=== PATIENT | female | born 1980 | race Caucasian/White ===

== ENCOUNTER 2022-12-26 10:56 | Outpatient (REF) | payer OTHER, SELFPAY | END 2022-12-26 10:57 | disposition home or self-care (01) | LOC: HO.BBR 10:56 | PROVIDERS: Visit Provider Internal Medicine Hematology | DX: Z13.89 Encounter for screening for other disorder (principal) ==

== ENCOUNTER 2023-03-29 11:24 | Outpatient (REF) | payer OTHER, SELFPAY | END 2023-03-29 11:25 | disposition home or self-care (01) | LOC: HO.BBR 11:24 | PROVIDERS: Visit Provider Internal Medicine Hematology | DX: Z13.89 Encounter for screening for other disorder (principal) ==

== ENCOUNTER 2023-10-31 09:10 | Outpatient (REF) | payer OTHER, SELFPAY | END 2023-10-31 09:11 | disposition home or self-care (01) | LOC: HO.BBR 09:10 | PROVIDERS: Visit Provider Internal Medicine Hematology | DX: Z13.89 Encounter for screening for other disorder (principal) ==

== ENCOUNTER 2024-12-30 09:08 | Outpatient (REF) | payer OTHER, SELFPAY ==
--- OUTSIDE RECORDS SUMMARY | 2024-12-30 10:09 | XMS_ITS ---
Author Organization [facility] Address [address] [place] [address] Care Team Providers Care Plastic Fabricator Name Role Phone VAMSI, ZAKI Unavailable [phone] REASON FOR VISIT 6 week f/u Encounters Encounter Location Date Provider Diagnosis [facility] [address] [place] [address] 10/07/2024 ZAKI AGUSTIN PLAN OF TREATMENT Next Appt Details Provider Name:ZAKI AGUSTIN, 0 01/14/2025 01:30:00 PM, [address], [place], [address], Progress Notes * UREÑARoss BOOEmigdioB:1980 (44 yo F)Acc No.[id number]:10/07/2024 Patient:??Chary UREÑA Provider:??ZAKI AGUSTIN PA-C :1980?Age:44 Y?Sex:Fe male Date:10/07/2024 Address[address], [place] Subjective: * Chief Complaints: * ?1. 6 week f/u. * Medical History:?? Objective: Assessment: Plan: * Treatment: * Images: Billing Information: * Visit Code:?? * Procedure Codes:?? * Sign off status: Pending * Provider:??ZAKI AGUSTIN PA-C Date:??09/27
--- OUTSIDE RECORDS SUMMARY | 2024-12-30 10:09 | XMS_ITS | Clinical Summary ---
[facility] Organization [facility] Address [address] [place] [address] Care Team Providers Care Custodial Maintenance Worker Name Role Phone Clementina Donnelly MD Primary Care Provider [phone] Social History Tobacco Use Types Packs/Day Years Used Date Smoking Tobacco: Never Smokeless Tobacco: Never Alcohol Use Standard Drinks/Week Comments Yes 0 (1 standard drink = 0.6 oz pur e alcohol) Comments Unknown Sex and Gender Information Value Date Recorded Sex Assigned at Female 12/18/2024 9:41 AM EST Legal Sex Female 12:00 AM EST Gender Identity Female 12/18/2024 9:41 AM EST Sexual Orientation Straight 12/18/2024 9: 41 AM EST Obstetrics History Plan of Treatment Upcoming Encounters Date Type Department Care Team (Late st Contact Info) Description 02/11/2025 8:30 AM EDT Appointment [facility] [address] [place] [address] Health Maintenance Due Date Last Done Comments Breast Cancer Screening 1980 DTaP,Tdap,and Td Vaccines (1 - Tdap) 1999 Hepatitis B Vaccines (1 of 3 - 19+ 3-dose series) 1999 Cervical Cancer Screening: P ap Smear 2001 Depression Screening 09/30/2022 HIV Screening 09/30/2022 Hepatitis C Screening 09/30/2022 Social Influencers of Health Screening 09/30/2022 COVID-19 Vaccine ( - 2023-2 5 season) 2024 Influenza Vaccine (#1) 2024 HIB Vaccines Aged Out No longer eligi ble based on patient's age to complete this topic HPV Vaccines Aged Out No longer eligi ble based on patient's age to complete this topic Hepatitis A Vaccines Aged Out No long er eligible based on patient's age to complete this topic IPV Vaccines Aged Out No longer eligi ble based on patient's age to complete this topic MMR Vaccines Aged Out No longer eligi ble based on patient's age to complete this topic Meningococcal ACWY Vaccine Aged Out N o longer eligible based on patient's age to complete this topic Meningococcal B Vacine Aged Out No lo nger eligible based on patient's age to complete this topic Pneumococcal Vaccine: Pediat rics (0 to 5 Years) and At-Risk Patients (6 to 64 Years) Aged Out No longer eligible b ased on patient's age to complete this topic RSV Immunization Patients Un josh 20 months Aged Out No longer eligible b ased on patient's age to complete this topic Varicella Vaccines Aged Out No longer eligible based on patient's age to complete this topic Insurance REPLACED BY [facility] Care Teams Custodial Maintenance Worker Relationship Specialty Start Date End Date Clementina Donnelly MD [address] [place], [place] [address]nelli Hartman [place] PCP - General Internal Medicine 11/09/20
--- OUTSIDE RECORDS SUMMARY | 2024-12-30 10:09 | XMS_ITS ---
Author Organization [facility] Address [address] [facility] [place] [address] Care Team Providers Care Delivery Table Feeder Name Role Phone VAMSILITAY Unavailable [phone] ALLERGIES No Known Allergies REASON FOR VISIT New patient, establishing care. MEDICATIONS Medication SIG (Take, Route, Fr equency, Duration) Notes Start Date End Date Status Zepbound 5 MG/0.5ML 5 mg Subcutaneous we ekly for 28 days Active PROBLEMS Problem Type ICD Code Onset Dates Problem Status W/U Status Risk SNOMED Code Notes Problem Hereditary hemochromatosis (E83.110) Active confirmed [id number] VITAL SIGNS Blood pressure systolic 130 mm Hg 12/02/19 25 Blood pressure diastolic 88 mm Hg 025 Heart Rate 83 /min 12/02/2024 Height 65 in 12/02/2024 Weight 152.4 lbs 12/02/2024 BMI 25.36 kg/m2 12/02/2024 Oximetry 98 % 12/02/2024 Encounters Encounter Location Date Provider Diagnosis [facility] [address] [place] [address] 12/02/2024 ZAKI AGUSTIN Overweight E66.3 ; F ood sticks on swallowing R13.10 ; BMI 25.0-25.9,adult Z68.25 ; Vitamin D deficiency, unspecified E55.9 ; Encounter for screening mammogram for malignant neoplasm of breast Z12.31 and Hereditary hemochromatosis E83.110 ASSESSMENTS Encounter Date Diagnosis Assessment Notes Treatment Notes Treatment Clinical Notes Section Notes 12/02/2024 Overweight (ICD-10 - E66.3) Chary is a 44-year-old female who presents the office for HEAD BUTLER visit. 07/16/2023:Weight 184.5, BMI 30.7. Patient welcomed to the practice. Extensively educated on lifestyle modifications including high-protein foods, low carbohydrate snacks, sleep hygiene, stress reduction, water intake, healthy fats. Provided educational documentation regarding all this. Patient is interested in weight loss medications to give her an extra boost although she is aware of the importance of continued lifestyle in conjunction with weight loss medications for successful/sustainab le weight loss. Patient has tried phentermine in the past, but admitted to a dry mouth and rebound weight gain getting off the medication. She is interested in compounded semaglutide. Educated on proper use, side effects. We will start at 0.25 mg today, and follow-up in 4 weeks, sooner as needed. 08/20/2023: Weight 176.3, BMI 29.33. Patient congratulated on effort. Continuing to lose slow, steady, sustainable weight loss. Very pleased with progress overall. Patient states that she has been sleeping better, portion control has been great and she has been feeling great on the medication. Is aware that she needs to focus more on resistance training. We will continue with semaglutide, but increase to 0.5 mg for the next 4 weeks. Patient is aware that at this time, she continues to lose weight she would not qualify for medications through health insurance. 01/08/2024: Weight 182.5, BMI 30.37. Patient was seen in July. Body composition reviewed and compared showing weight gain, 1 pound of muscle gain, 6 pounds of fat gain. Patient states she is ready to get back on track. Extensively educated on lifestyle modifications. Patient is going to contact her health insurance to see if they cover medication such as Wegovy or Zepbound. Is interested in starting Zepbound. States that she wants to start compounded while waiting for insurance approval. Educated on the insurance approval process with no guarantees of coverage or supply. Patient understanding. Will start tirzepatide 2.5 mg today. Educated on proper use, side effects. Follow-up in 4 weeks. 02/05/2024: Weight 173.4, BMI 28.85. Patient congratulated on effort. Encouraged to continue with slow, steady weight loss. Tried send Zepbpund, although still waiting on prior authorization, medical record librarian Rojas refilling out through cover my meds today. Doing tirzepatide 2.5 mg in office, taken with compliance, no side effects, noticing great improvement, feeling really well. Will continue tirzepatide 2.5 mg all waiting for insurance authorization. Continue with lifestyle as well. Patient encouraged. 03/26/2024: Weight 170, BMI 28.32. Patient congratulated on effort, body scan shows 3 pounds of weight loss. But 4 pounds of fat loss with muscle maintenance. Patient congratulated. Increase Zepbpund to 5 mg. Is aware of shortage, will contact with concern and can do compounded version in the meantime 05/08/2024: Weight 157.2, BMI 26.16. Patient congratulated on effort, continue to lose slow, steady weight. Taking Zepbound 5 mg with compliance, without side effects.. Pleased with progress overall. Focusing on high-protein, and resistance training 2 times weekly, otherwise we will continue with 5 mg dose. 07/09/24: Wt: 153 lbs, BMI: 25.46 Patient overall doing well. Has lost 5 pounds of fat mass in 1 pound skeletal muscle mass. Discussed increasing protein in diet and begin weightbearing exercise to maintain or increase skeletal muscle mass. Discussed adding protein in diet with hard-boiled eggs for breakfast as an easy alternative or a busy mom with children. Discussed diet of 1200 [address] to lose weight. Patient has a home gym and agreed to set goal as using weights 1 day a week to hold self accountable. Plan to continue Zepbound 5 mg weekly injectables and follow-up in 4 weeks to assess progress. 08/12/2024: Weight 145, BMI 24.21. Patient congratulated and effort, has had great success in starting this journey. Taking Zepbound 5 mg with compliance, doubt any side effects. Goal weight is around 140 pounds. Will continue with Zepbound but do it every 10 days instead of every 7 days, follow-up in 6 weeks, and consider tapering down to Zepbound 2.5 mg at that time.Doing very well with lifestyle and nutrition and exercise. 11/12/2024: Weight 154, BMI 25. Patient has gained 9 pounds since last visit, 3 pounds of muscle, also gained some fat. Patient states that she wants to continue with Zepbound 5 mg. Is not ready to get off, states that she feels much better on the medication with joint pain, energy etc. Is aware that she cannot be on this long-term but will continue with 5 mg for now and focus on continued lifestyle changes. 12/02/2024: Weight 152, BMI 25: Continue Zepbound 5 mg. Patient is pleased with progress overall. #Lack of sleep: Educated on sleep hygiene, Improved with weight loss. # Will sign record release, patient is up-to-date on Tdap, declines flu/COVID vaccines. Will order mammogram 12/02/2024 # Due for blood work, fasting labs ordered today # Sensation of food stuck in her throat with negative endoscopy 4 years ago. Admits to worsening symptoms. Will order barium swallow. Discussed small bites/fully chewing food. Reflux medications as needed # Difficulty with active recall. Family history of ADHD. Not interested in psychiatry evaluation. Trial methylated B vitamins and co-Q10. Patient does have a family history that carries MTHFR gene # Referral to [facility] for routine skin check # History of hemochromatosis, ordering labs, following with Dr. Coco Santiago, does get routine phlebotomy Follow-up in 4 to 6 weeks for complete physical, sooner as needed All quetsions answered to patients satisfaction. Patient verbalized understanding of diagnosis and treatments explained. To call sooner prior to next visit it any questions/concerns arise. Case discussed with collaborating physician Adalberto Daly who reviewed the assessment and plan. Chart, medications, labs, vital signs reviewed. Dictation was accomplished with the use of [employer] voice recognition software, prone to medical misidentifications and grammatical errors. This is unintentional and the practitioner does try to identify and correct these, but some could still be present. Please do not hesitate to contact practitioner for clarification. 12/02/2024 Food sticks on swallowing (ICD-10 - R13.10) Chary is a 44-year-old female who presents the office for HEAD BUTLER visit. 07/16/2023:Weight 184.5, BMI 30.7. Patient welcomed to the practice. Extensively educated on lifestyle modifications including high-protein foods, low carbohydrate snacks, sleep hygiene, stress reduction, water intake, healthy fats. Provided educational documentation regarding all this. Patient is interested in weight loss medications to give her an extra boost although she is aware of the importance of continued lifestyle in conjunction with weight loss medications for successful/sustainab le weight loss. Patient has tried phentermine in the past, but admitted to a dry mouth and rebound weight gain getting off the medication. She is interested in compounded semaglutide. Educated on proper use, side effects. We will start at 0.25 mg today, and follow-up in 4 weeks, sooner as needed. 08/20/2023: Weight 176.3, BMI 29.33. Patient congratulated on effort. Continuing to lose slow, steady, sustainable weight loss. Very pleased with progress overall. Patient states that she has been sleeping better, portion control has been great and she has been feeling great on the medication. Is aware that she needs to focus more on resistance training. We will continue with semaglutide, but increase to 0.5 mg for the next 4 weeks. Patient is aware that at this time, she continues to lose weight she would not qualify for medications through health insurance. 01/08/2024: Weight 182.5, BMI 30.37. Patient was seen in July. Body composition reviewed and compared showing weight gain, 1 pound of muscle gain, 6 pounds of fat gain. Patient states she is ready to get back on track. Extensively educated on lifestyle modifications. Patient is going to contact her health insurance to see if they cover medication such as Wegovy or Zepbound. Is interested in starting Zepbound. States that she wants to start compounded while waiting for insurance approval. Educated on the insurance approval process with no guarantees of coverage or supply. Patient understanding. Will start tirzepatide 2.5 mg today. Educated on proper use, side effects. Follow-up in 4 weeks. 02/05/2024: Weight 173.4, BMI 28.85. Patient congratulated on effort. Encouraged to continue with slow, steady weight loss. Tried send Zepbpund, although still waiting on prior authorization, medical record librarian Rojas refilling out through cover my meds today. Doing tirzepatide 2.5 mg in office, taken with compliance, no side effects, noticing great improvement, feeling really well. Will continue tirzepatide 2.5 mg all waiting for insurance authorization. Continue with lifestyle as well. Patient encouraged. 03/26/2024: Weight 170, BMI 28.32. Patient congratulated on effort, body scan shows 3 pounds of weight loss. But 4 pounds of fat loss with muscle maintenance. Patient congratulated. Increase Zepbpund to 5 mg. Is aware of shortage, will contact with concern and can do compounded version in the meantime 05/08/2024: Weight 157.2, BMI 26.16. Patient congratulated on effort, continue to lose slow, steady weight. Taking Zepbound 5 mg with compliance, without side effects.. Pleased with progress overall. Focusing on high-protein, and resistance training 2 times weekly, otherwise we will continue with 5 mg dose. 07/09/24: Wt: 153 lbs, BMI: 25.46 Patient overall doing well. Has lost 5 pounds of fat mass in 1 pound skeletal muscle mass. Discussed increasing protein in diet and begin weightbearing exercise to maintain or increase skeletal muscle mass. Discussed adding protein in diet with hard-boiled eggs for breakfast as an easy alternative or a busy mom with children. Discussed diet of 1200 [address] to lose weight. Patient has a home gym and agreed to set goal as using weights 1 day a week to hold self accountable. Plan to continue Zepbound 5 mg weekly injectables and follow-up in 4 weeks to assess progress. 08/12/2024: Weight 145, BMI 24.21. Patient congratulated and effort, has had great success in starting this journey. Taking Zepbound 5 mg with compliance, doubt any side effects. Goal weight is around 140 pounds. Will continue with Zepbound but do it every 10 days instead of every 7 days, follow-up in 6 weeks, and consider tapering down to Zepbound 2.5 mg at that time.Doing very well with lifestyle and nutrition and exercise. 11/12/2024: Weight 154, BMI 25. Patient has gained 9 pounds since last visit, 3 pounds of muscle, also gained some fat. Patient states that she wants to continue with Zepbound 5 mg. Is not ready to get off, states that she feels much better on the medication with joint pain, energy etc. Is aware that she cannot be on this long-term but will continue with 5 mg for now and focus on continued lifestyle changes. 12/02/2024: Weight 152, BMI 25: Continue Zepbound 5 mg. Patient is pleased with progress overall. #Lack of sleep: Educated on sleep hygiene, Improved with weight loss. # Will sign record release, patient is up-to-date on Tdap, declines flu/COVID vaccines. Will order mammogram 12/02/2024 # Due for blood work, fasting labs ordered today # Sensation of food stuck in her throat with negative endoscopy 4 years ago. Admits to worsening symptoms. Will order barium swallow. Discussed small bites/fully chewing food. Reflux medications as needed # Difficulty with active recall. Family history of ADHD. Not interested in psychiatry evaluation. Trial methylated B vitamins and co-Q10. Patient does have a family history that carries MTHFR gene # Referral to [facility] for routine skin check # History of hemochromatosis, ordering labs, following with Dr. Coco Santiago, does get routine phlebotomy Follow-up in 4 to 6 weeks for complete physical, sooner as needed All quetsions answered to patients satisfaction. Patient verbalized understanding of diagnosis and treatments explained. To call sooner prior to next visit it any questions/concerns arise. Case discussed with collaborating physician Adalberto Daly who reviewed the assessment and plan. Chart, medications, labs, vital signs reviewed. Dictation was accomplished with the use of [employer] voice recognition software, prone to medical misidentifications and grammatical errors. This is unintentional and the practitioner does try to identify and correct these, but some could still be present. Please do not hesitate to contact practitioner for clarification. 12/02/2024 BMI 25.0-25.9,adult (ICD-10 - Z68.25) Chary is a 44-year-old female who presents the office for HEAD BUTLER visit. 07/16/2023:Weight 184.5, BMI 30.7. Patient welcomed to the practice. Extensively educated on lifestyle modifications including high-protein foods, low carbohydrate snacks, sleep hygiene, stress reduction, water intake, healthy fats. Provided educational documentation regarding all this. Patient is interested in weight loss medications to give her an extra boost although she is aware of the importance of continued lifestyle in conjunction with weight loss medications for successful/sustainab le weight loss. Patient has tried phentermine in the past, but admitted to a dry mouth and rebound weight gain getting off the medication. She is interested in compounded semaglutide. Educated on proper use, side effects. We will start at 0.25 mg today, and follow-up in 4 weeks, sooner as needed. 08/20/2023: Weight 176.3, BMI 29.33. Patient congratulated on effort. Continuing to lose slow, steady, sustainable weight loss. Very pleased with progress overall. Patient states that she has been sleeping better, portion control has been great and she has been feeling great on the medication. Is aware that she needs to focus more on resistance training. We will continue with semaglutide, but increase to 0.5 mg for the next 4 weeks. Patient is aware that at this time, she continues to lose weight she would not qualify for medications through health insurance. 01/08/2024: Weight 182.5, BMI 30.37. Patient was seen in July. Body composition reviewed and compared showing weight gain, 1 pound of muscle gain, 6 pounds of fat gain. Patient states she is ready to get back on track. Extensively educated on lifestyle modifications. Patient is going to contact her health insurance to see if they cover medication such as Wegovy or Zepbound. Is interested in starting Zepbound. States that she wants to start compounded while waiting for insurance approval. Educated on the insurance approval process with no guarantees of coverage or supply. Patient understanding. Will start tirzepatide 2.5 mg today. Educated on proper use, side effects. Follow-up in 4 weeks. 02/05/2024: Weight 173.4, BMI 28.85. Patient congratulated on effort. Encouraged to continue with slow, steady weight loss. Tried send Zepbpund, although still waiting on prior authorization, medical record librarian Rojas refilling out through cover my meds today. Doing tirzepatide 2.5 mg in office, taken with compliance, no side effects, noticing great improvement, feeling really well. Will continue tirzepatide 2.5 mg all waiting for insurance authorization. Continue with lifestyle as well. Patient encouraged. 03/26/2024: Weight 170, BMI 28.32. Patient congratulated on effort, body scan shows 3 pounds of weight loss. But 4 pounds of fat loss with muscle maintenance. Patient congratulated. Increase Zepbpund to 5 mg. Is aware of shortage, will contact with concern and can do compounded version in the meantime 05/08/2024: Weight 157.2, BMI 26.16. Patient congratulated on effort, continue to lose slow, steady weight. Taking Zepbound 5 mg with compliance, without side effects.. Pleased with progress overall. Focusing on high-protein, and resistance training 2 times weekly, otherwise we will continue with 5 mg dose. 07/09/24: Wt: 153 lbs, BMI: 25.46 Patient overall doing well. Has lost 5 pounds of fat mass in 1 pound skeletal muscle mass. Discussed increasing protein in diet and begin weightbearing exercise to maintain or increase skeletal muscle mass. Discussed adding protein in diet with hard-boiled eggs for breakfast as an easy alternative or a busy mom with children. Discussed diet of 1200 [address] to lose weight. Patient has a home gym and agreed to set goal as using weights 1 day a week to hold self accountable. Plan to continue Zepbound 5 mg weekly injectables and follow-up in 4 weeks to assess progress. 08/12/2024: Weight 145, BMI 24.21. Patient congratulated and effort, has had great success in starting this journey. Taking Zepbound 5 mg with compliance, doubt any side effects. Goal weight is around 140 pounds. Will continue with Zepbound but do it every 10 days instead of every 7 days, follow-up in 6 weeks, and consider tapering down to Zepbound 2.5 mg at that time.Doing very well with lifestyle and nutrition and exercise. 11/12/2024: Weight 154, BMI 25. Patient has gained 9 pounds since last visit, 3 pounds of muscle, also gained some fat. Patient states that she wants to continue with Zepbound 5 mg. Is not ready to get off, states that she feels much better on the medication with joint pain, energy etc. Is aware that she cannot be on this long-term but will continue with 5 mg for now and focus on continued lifestyle changes. 12/02/2024: Weight 152, BMI 25: Continue Zepbound 5 mg. Patient is pleased with progress overall. #Lack of sleep: Educated on sleep hygiene, Improved with weight loss. # Will sign record release, patient is up-to-date on Tdap, declines flu/COVID vaccines. Will order mammogram 12/02/2024 # Due for blood work, fasting labs ordered today # Sensation of food stuck in her throat with negative endoscopy 4 years ago. Admits to worsening symptoms. Will order barium swallow. Discussed small bites/fully chewing food. Reflux medications as needed # Difficulty with active recall. Family history of ADHD. Not interested in psychiatry evaluation. Trial methylated B vitamins and co-Q10. Patient does have a family history that carries MTHFR gene # Referral to [facility] for routine skin check # History of hemochromatosis, ordering labs, following with Dr. Coco Santiago, does get routine phlebotomy Follow-up in 4 to 6 weeks for complete physical, sooner as needed All quetsions answered to patients satisfaction. Patient verbalized understanding of diagnosis and treatments explained. To call sooner prior to next visit it any questions/concerns arise. Case discussed with collaborating physician Adalberto Daly who reviewed the assessment and plan. Chart, medications, labs, vital signs reviewed. Dictation was accomplished with the use of [employer] voice recognition software, prone to medical misidentifications and grammatical errors. This is unintentional and the practitioner does try to identify and correct these, but some could still be present. Please do not hesitate to contact practitioner for clarification. 12/02/2024 Vitamin D deficiency, unspecified (ICD-10 - E55.9) Chary is a 44-year-old female who presents the office for HEAD BUTLER visit. 07/16/2023:Weight 184.5, BMI 30.7. Patient welcomed to the practice. Extensively educated on lifestyle modifications including high-protein foods, low carbohydrate snacks, sleep hygiene, stress reduction, water intake, healthy fats. Provided educational documentation regarding all this. Patient is interested in weight loss medications to give her an extra boost although she is aware of the importance of continued lifestyle in conjunction with weight loss medications for successful/sustainab le weight loss. Patient has tried phentermine in the past, but admitted to a dry mouth and rebound weight gain getting off the medication. She is interested in compounded semaglutide. Educated on proper use, side effects. We will start at 0.25 mg today, and follow-up in 4 weeks, sooner as needed. 08/20/2023: Weight 176.3, BMI 29.33. Patient congratulated on effort. Continuing to lose slow, steady, sustainable weight loss. Very pleased with progress overall. Patient states that she has been sleeping better, portion control has been great and she has been feeling great on the medication. Is aware that she needs to focus more on resistance training. We will continue with semaglutide, but increase to 0.5 mg for the next 4 weeks. Patient is aware that at this time, she continues to lose weight she would not qualify for medications through health insurance. 01/08/2024: Weight 182.5, BMI 30.37. Patient was seen in July. Body composition reviewed and compared showing weight gain, 1 pound of muscle gain, 6 pounds of fat gain. Patient states she is ready to get back on track. Extensively educated on lifestyle modifications. Patient is going to contact her health insurance to see if they cover medication such as Wegovy or Zepbound. Is interested in starting Zepbound. States that she wants to start compounded while waiting for insurance approval. Educated on the insurance approval process with no guarantees of coverage or supply. Patient understanding. Will start tirzepatide 2.5 mg today. Educated on proper use, side effects. Follow-up in 4 weeks. 02/05/2024: Weight 173.4, BMI 28.85. Patient congratulated on effort. Encouraged to continue with slow, steady weight loss. Tried send Zepbpund, although still waiting on prior authorization, medical record librarian Rojas refilling out through cover my meds today. Doing tirzepatide 2.5 mg in office, taken with compliance, no side effects, noticing great improvement, feeling really well. Will continue tirzepatide 2.5 mg all waiting for insurance authorization. Continue with lifestyle as well. Patient encouraged. 03/26/2024: Weight 170, BMI 28.32. Patient congratulated on effort, body scan shows 3 pounds of weight loss. But 4 pounds of fat loss with muscle maintenance. Patient congratulated. Increase Zepbpund to 5 mg. Is aware of shortage, will contact with concern and can do compounded version in the meantime 05/08/2024: Weight 157.2, BMI 26.16. Patient congratulated on effort, continue to lose slow, steady weight. Taking Zepbound 5 mg with compliance, without side effects.. Pleased with progress overall. Focusing on high-protein, and resistance training 2 times weekly, otherwise we will continue with 5 mg dose. 07/09/24: Wt: 153 lbs, BMI: 25.46 Patient overall doing well. Has lost 5 pounds of fat mass in 1 pound skeletal muscle mass. Discussed increasing protein in diet and begin weightbearing exercise to maintain or increase skeletal muscle mass. Discussed adding protein in diet with hard-boiled eggs for breakfast as an easy alternative or a busy mom with children. Discussed diet of 1200 armando to lose weight. Patient has a home gym and agreed to set goal as using weights 1 day a week to hold self accountable. Plan to continue Zepbound 5 mg weekly injectables and follow-up in 4 weeks to assess progress. 08/12/2024: Weight 145, BMI 24.21. Patient congratulated and effort, has had great success in starting this journey. Taking Zepbound 5 mg with compliance, doubt any side effects. Goal weight is around 140 pounds. Will continue with Zepbound but do it every 10 days instead of every 7 days, follow-up in 6 weeks, and consider tapering down to Zepbound 2.5 mg at that time.Doing very well with lifestyle and nutrition and exercise. 11/12/2024: Weight 154, BMI 25. Patient has gained 9 pounds since last visit, 3 pounds of muscle, also gained some fat. Patient states that she wants to continue with Zepbound 5 mg. Is not ready to get off, states that she feels much better on the medication with joint pain, energy etc. Is aware that she cannot be on this long-term but will continue with 5 mg for now and focus on continued lifestyle changes. 12/02/2024: Weight 152, BMI 25: Continue Zepbound 5 mg. Patient is pleased with progress overall. #Lack of sleep: Educated on sleep hygiene, Improved with weight loss. # Will sign record release, patient is up-to-date on Tdap, declines flu/COVID vaccines. Will order mammogram 12/02/2024 # Due for blood work, fasting labs ordered today # Sensation of food stuck in her throat with negative endoscopy 4 years ago. Admits to worsening symptoms. Will order barium swallow. Discussed small bites/fully chewing food. Reflux medications as needed # Difficulty with active recall. Family history of ADHD. Not interested in psychiatry evaluation. Trial methylated B vitamins and co-Q10. Patient does have a family history that carries MTHFR gene # Referral to [facility] for routine skin check # History of hemochromatosis, ordering labs, following with Dr. Coco Santiago, does get routine phlebotomy Follow-up in 4 to 6 weeks for complete physical, sooner as needed All quetsions answered to patients satisfaction. Patient verbalized understanding of diagnosis and treatments explained. To call sooner prior to next visit it any questions/concerns arise. Case discussed with collaborating physician Adalberto Daly who reviewed the assessment and plan. Chart, medications, labs, vital signs reviewed. Dictation was accomplished with the use of [employer] voice recognition software, prone to medical misidentifications and grammatical errors. This is unintentional and the practitioner does try to identify and correct these, but some could still be present. Please do not hesitate to contact practitioner for clarification. 12/02/2024 Encounter for screening mammogram for malignant neoplasm of breast (ICD-10 - Z12.31) Chary is a 44-year-old female who presents the office for HEAD BUTLER visit. 07/16/2023:Weight 184.5, BMI 30.7. Patient welcomed to the practice. Extensively educated on lifestyle modifications including high-protein foods, low carbohydrate snacks, sleep hygiene, stress reduction, water intake, healthy fats. Provided educational documentation regarding all this. Patient is interested in weight loss medications to give her an extra boost although she is aware of the importance of continued lifestyle in conjunction with weight loss medications for successful/sustainab le weight loss. Patient has tried phentermine in the past, but admitted to a dry mouth and rebound weight gain getting off the medication. She is interested in compounded semaglutide. Educated on proper use, side effects. We will start at 0.25 mg today, and follow-up in 4 weeks, sooner as needed. 08/20/2023: Weight 176.3, BMI 29.33. Patient congratulated on effort. Continuing to lose slow, steady, sustainable weight loss. Very pleased with progress overall. Patient states that she has been sleeping better, portion control has been great and she has been feeling great on the medication. Is aware that she needs to focus more on resistance training. We will continue with semaglutide, but increase to 0.5 mg for the next 4 weeks. Patient is aware that at this time, she continues to lose weight she would not qualify for medications through health insurance. 01/08/2024: Weight 182.5, BMI 30.37. Patient was seen in July. Body composition reviewed and compared showing weight gain, 1 pound of muscle gain, 6 pounds of fat gain. Patient states she is ready to get back on track. Extensively educated on lifestyle modifications. Patient is going to contact her health insurance to see if they cover medication such as Wegovy or Zepbound. Is interested in starting Zepbound. States that she wants to start compounded while waiting for insurance approval. Educated on the insurance approval process with no guarantees of coverage or supply. Patient understanding. Will start tirzepatide 2.5 mg today. Educated on proper use, side effects. Follow-up in 4 weeks. 02/05/2024: Weight 173.4, BMI 28.85. Patient congratulated on effort. Encouraged to continue with slow, steady weight loss. Tried send Zepbpund, although still waiting on prior authorization, medical record librarian Rojas refilling out through cover my meds today. Doing tirzepatide 2.5 mg in office, taken with compliance, no side effects, noticing great improvement, feeling really well. Will continue tirzepatide 2.5 mg all waiting for insurance authorization. Continue with lifestyle as well. Patient encouraged. 03/26/2024: Weight 170, BMI 28.32. Patient congratulated on effort, body scan shows 3 pounds of weight loss. But 4 pounds of fat loss with muscle maintenance. Patient congratulated. Increase Zepbpund to 5 mg. Is aware of shortage, will contact with concern and can do compounded version in the meantime 05/08/2024: Weight 157.2, BMI 26.16. Patient congratulated on effort, continue to lose slow, steady weight. Taking Zepbound 5 mg with compliance, without side effects.. Pleased with progress overall. Focusing on high-protein, and resistance training 2 times weekly, otherwise we will continue with 5 mg dose. 07/09/24: Wt: 153 lbs, BMI: 25.46 Patient overall doing well. Has lost 5 pounds of fat mass in 1 pound skeletal muscle mass. Discussed increasing protein in diet and begin weightbearing exercise to maintain or increase skeletal muscle mass. Discussed adding protein in diet with hard-boiled eggs for breakfast as an easy alternative or a busy mom with children. Discussed diet of 1200 [address] to lose weight. Patient has a home gym and agreed to set goal as using weights 1 day a week to hold self accountable. Plan to continue Zepbound 5 mg weekly injectables and follow-up in 4 weeks to assess progress. 08/12/2024: Weight 145, BMI 24.21. Patient congratulated and effort, has had great success in starting this journey. Taking Zepbound 5 mg with compliance, doubt any side effects. Goal weight is around 140 pounds. Will continue with Zepbound but do it every 10 days instead of every 7 days, follow-up in 6 weeks, and consider tapering down to Zepbound 2.5 mg at that time.Doing very well with lifestyle and nutrition and exercise. 11/12/2024: Weight 154, BMI 25. Patient has gained 9 pounds since last visit, 3 pounds of muscle, also gained some fat. Patient states that she wants to continue with Zepbound 5 mg. Is not ready to get off, states that she feels much better on the medication with joint pain, energy etc. Is aware that she cannot be on this long-term but will continue with 5 mg for now and focus on continued lifestyle changes. 12/02/2024: Weight 152, BMI 25: Continue Zepbound 5 mg. Patient is pleased with progress overall. #Lack of sleep: Educated on sleep hygiene, Improved with weight loss. # Will sign record release, patient is up-to-date on Tdap, declines flu/COVID vaccines. Will order mammogram 12/02/2024 # Due for blood work, fasting labs ordered today # Sensation of food stuck in her throat with negative endoscopy 4 years ago. Admits to worsening symptoms. Will order barium swallow. Discussed small bites/fully chewing food. Reflux medications as needed # Difficulty with active recall. Family history of ADHD. Not interested in psychiatry evaluation. Trial methylated B vitamins and co-Q10. Patient does have a family history that carries MTHFR gene # Referral to [facility] for routine skin check # History of hemochromatosis, ordering labs, following with Dr. Coco Santiago, does get routine phlebotomy Follow-up in 4 to 6 weeks for complete physical, sooner as needed All quetsions answered to patients satisfaction. Patient verbalized understanding of diagnosis and treatments explained. To call sooner prior to next visit it any questions/concerns arise. Case discussed with collaborating physician Adalberto Daly who reviewed the assessment and plan. Chart, medications, labs, vital signs reviewed. Dictation was accomplished with the use of [employer] voice recognition software, prone to medical misidentifications and grammatical errors. This is unintentional and the practitioner does try to identify and correct these, but some could still be present. Please do not hesitate to contact practitioner for clarification. 12/02/2024 Hereditary hemochromatosis (ICD-10 - E83.110) Chary is a 44-year-old female who presents the office for HEAD BUTLER visit. 07/16/2023:Weight 184.5, BMI 30.7. Patient welcomed to the practice. Extensively educated on lifestyle modifications including high-protein foods, low carbohydrate snacks, sleep hygiene, stress reduction, water intake, healthy fats. Provided educational documentation regarding all this. Patient is interested in weight loss medications to give her an extra boost although she is aware of the importance of continued lifestyle in conjunction with weight loss medications for successful/sustainab le weight loss. Patient has tried phentermine in the past, but admitted to a dry mouth and rebound weight gain getting off the medication. She is interested in compounded semaglutide. Educated on proper use, side effects. We will start at 0.25 mg today, and follow-up in 4 weeks, sooner as needed. 08/20/2023: Weight 176.3, BMI 29.33. Patient congratulated on effort. Continuing to lose slow, steady, sustainable weight loss. Very pleased with progress overall. Patient states that she has been sleeping better, portion control has been great and she has been feeling great on the medication. Is aware that she needs to focus more on resistance training. We will continue with semaglutide, but increase to 0.5 mg for the next 4 weeks. Patient is aware that at this time, she continues to lose weight she would not qualify for medications through health insurance. 01/08/2024: Weight 182.5, BMI 30.37. Patient was seen in July. Body composition reviewed and compared showing weight gain, 1 pound of muscle gain, 6 pounds of fat gain. Patient states she is ready to get back on track. Extensively educated on lifestyle modifications. Patient is going to contact her health insurance to see if they cover medication such as Wegovy or Zepbound. Is interested in starting Zepbound. States that she wants to start compounded while waiting for insurance approval. Educated on the insurance approval process with no guarantees of coverage or supply. Patient understanding. Will start tirzepatide 2.5 mg today. Educated on proper use, side effects. Follow-up in 4 weeks. 02/05/2024: Weight 173.4, BMI 28.85. Patient congratulated on effort. Encouraged to continue with slow, steady weight loss. Tried send Zepbpund, although still waiting on prior authorization, medical record librarian Rojas refilling out through cover my meds today. Doing tirzepatide 2.5 mg in office, taken with compliance, no side effects, noticing great improvement, feeling really well. Will continue tirzepatide 2.5 mg all waiting for insurance authorization. Continue with lifestyle as well. Patient encouraged. 03/26/2024: Weight 170, BMI 28.32. Patient congratulated on effort, body scan shows 3 pounds of weight loss. But 4 pounds of fat loss with muscle maintenance. Patient congratulated. Increase Zepbpund to 5 mg. Is aware of shortage, will contact with concern and can do compounded version in the meantime 05/08/2024: Weight 157.2, BMI 26.16. Patient congratulated on effort, continue to lose slow, steady weight. Taking Zepbound 5 mg with compliance, without side effects.. Pleased with progress overall. Focusing on high-protein, and resistance training 2 times weekly, otherwise we will continue with 5 mg dose. 07/09/24: Wt: 153 lbs, BMI: 25.46 Patient overall doing well. Has lost 5 pounds of fat mass in 1 pound skeletal muscle mass. Discussed increasing protein in diet and begin weightbearing exercise to maintain or increase skeletal muscle mass. Discussed adding protein in diet with hard-boiled eggs for breakfast as an easy alternative or a busy mom with children. Discussed diet of 1200 [address] to lose weight. Patient has a home gym and agreed to set goal as using weights 1 day a week to hold self accountable. Plan to continue Zepbound 5 mg weekly injectables and follow-up in 4 weeks to assess progress. 08/12/2024: Weight 145, BMI 24.21. Patient congratulated and effort, has had great success in starting this journey. Taking Zepbound 5 mg with compliance, doubt any side effects. Goal weight is around 140 pounds. Will continue with Zepbound but do it every 10 days instead of every 7 days, follow-up in 6 weeks, and consider tapering down to Zepbound 2.5 mg at that time.Doing very well with lifestyle and nutrition and exercise. 11/12/2024: Weight 154, BMI 25. Patient has gained 9 pounds since last visit, 3 pounds of muscle, also gained some fat. Patient states that she wants to continue with Zepbound 5 mg. Is not ready to get off, states that she feels much better on the medication with joint pain, energy etc. Is aware that she cannot be on this long-term but will continue with 5 mg for now and focus on continued lifestyle changes. 12/02/2024: Weight 152, BMI 25: Continue Zepbound 5 mg. Patient is pleased with progress overall. #Lack of sleep: Educated on sleep hygiene, Improved with weight loss. # Will sign record release, patient is up-to-date on Tdap, declines flu/COVID vaccines. Will order mammogram 12/02/2024 # Due for blood work, fasting labs ordered today # Sensation of food stuck in her throat with negative endoscopy 4 years ago. Admits to worsening symptoms. Will order barium swallow. Discussed small bites/fully chewing food. Reflux medications as needed # Difficulty with active recall. Family history of ADHD. Not interested in psychiatry evaluation. Trial methylated B vitamins and co-Q10. Patient does have a family history that carries MTHFR gene # Referral to [facility] for routine skin check # History of hemochromatosis, ordering labs, following with Dr. Coco Santiago, does get routine phlebotomy Follow-up in 4 to 6 weeks for complete physical, sooner as needed All quetsions answered to patients satisfaction. Patient verbalized understanding of diagnosis and treatments explained. To call sooner prior to next visit it any questions/concerns arise. Case discussed with collaborating physician Adalberto Daly who reviewed the assessment and plan. Chart, medications, labs, vital signs reviewed. Dictation was accomplished with the use of [employer] voice recognition software, prone to medical misidentifications and grammatical errors. This is unintentional and the practitioner does try to identify and correct these, but some could still be present. Please do not hesitate to contact practitioner for clarification. PLAN OF TREATMENT Medication Medication Name Sig Start Date Stop Date Notes Zepbound 5 MG/0.5ML 5 mg Subcutaneous weekly for 28 days Pending Test Test Name Order Date Barium Swallow 12/02/2024 MAMMOGRAM, SCREENING 12/02/2024 LIPID PANEL, STANDARD 12/02/2024 IRON, TIBC AND FERRITIN PANEL 12/02/2024 COMPREHENSIVE METABOLIC PANEL 12/02/2024 CBC (INCLUDES DIFF/PLT) 12/02/2024 URINALYSIS, COMPLETE 12/02/2024 HEMOGLOBIN A1c 12/02/2024 VITAMIN B12 12/02/2024 TSH 12/02/2024 VITAMIN D,25-OH,TOTAL,IA 12/02/2024 Next Appt Details Provider Name:Destini ASHLEY 01/14/2025 01:30:00 PM, [address], [place], [address], Progress Notes * Ross UREÑAaDOB:1980 (44 yo F)Acc No.[id number]:12/02/2024 Progress Notes Patient:??Chary UREÑA Provider:??ZAKI AGUSTIN PA-C :1980?Age:44 Y?Sex:Fe male Date:12/02/2024 Address:[address] [place], [place] [address]am[place] V[place]as, [facility] Subjective: * Chief Complaints: * ?1. New patient, [facility].. * HPI: ?Constitutional:? Chary presents today for a new patient visit. ?New patient paperwork reviewed with patient. ?Past medical, surgical, social, family history and medications reviewed. ?Coming from [facility] practice. ?Last CPE/Labs: 3-4 years ago. 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 ?Currently is living with her and four kids. ?Substance use/Lifestyle ?ETOH use: weekly will drink 3 drinks ?Tobacco use: declines ?Drugs/Marijuana use: declines ?Seatbelt Use: Yes ?Smoke Detectors: Yes ?Vaccinations- ?Flu Vaccine: UTD 07/2024 ?Covid: declines ?Tetanus: 05/2021 ?Prevention Screenings- ?Mammogram: will order ?PAP: UTD ?Patient does have a few concerns addressed today. Biggest concern is that she states that she multiple times weekly will feel like food gets stuck in her throat. Has had an endoscopy 4 years ago which was negative for stricture, but she states that the symptoms have been getting worse. She states it does not happen with liquids, just solids. States that sometimes she will feel the food gets stuck, and then she will have to take small sips of water, and she gradually feels it moved down her esophagus. She admits the pressure anteriorly, and posteriorly. Denies any reflux symptoms. ?Also patient states that she has some concerns with active recall, not interested in psychiatry follow-up yet for ADHD but does have family history of ADHD. Sister is positive for MTHFR gene, and she is going to try methylated B vitamins in conjunction with co-Q10 to see if that helps. ?Looking for referral to dermatology for routine skin check ?Following with Dr. Coco Santiago for hematology secondary to hereditary hemochromatosis. * ROS:?Constitutional: , no fever, no night sweats, no changes in sleep. ???Cardiovascular: No chest pain, no dyspnea on exertion, no PND, no orthopnea, no irregular pulse, no palpitations, no claudication, no diaphoresis, no claudication. ???Respiratory: No chronic cough, no hemoptysis, no sputum, no wheezing, no SOB, no pleuritic pain. ???GI, No diarrhea, no constipation, no blood in the stools, no pain associated with eating, no indigestion, no difficulty swallowing, no appetite change. ???Genitourinary: No painful urination, no hesitancy, no blood in the urine, no incontinence, no frequency, no urgency, no abnormal discharge. ???Musculoskeletal: No back pain, no joint pain, no limitations to walking and running, no joint deformity, no joint stiffness, no muscle weakness ???Integumentary: No new skin rash. No new changes in skin moles, no pruritis, no color change. ???Neurological: No history of seizures, no memory loss, no language dysfunction, no inability to concentrate, no localized weakness, no sensation loss, no confusion, no dizziness, no tremor, no numbness, no tingling. ???Psychiatric: no anxiety, no depression, no suicidal thoughts, feels safe at home. ???Endocrine: No polyuria, no polyphagia, no polydipsia. No heat/cold intolerance, no excesss thirst. ???Hematological: No easy bruising or bleeding, no lymph node swelling. * Medical History:??Weight gai n, Hereditary hemochromatosis, Uterine Fibroids, Sensation of food stuck in throat. 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 * OB History:??Total pregnanci es??3.?? # 1:??normal spontaneous vaginal delivery ().?? # 2:??normal spontaneous vaginal delivery ().?? # 3??Primary .?? * Surgical History:?? , deviated septum , right ovarian cyst removed , fibroid removal . * Hospitalization/Major Diagno stic Procedure:?? with pre-eclampsia . * Family History:??Father: ali ve 70 yrs.??Mother: alive 70 yrs.??2 sister(s) - healthy. 3 son(s) , 1 daughter(s) - healthy. .?? mother: skin cancer. 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 * Medications:??Taking Zepboun d 5 MG/0.5ML Solution Auto-injector 5 mg Subcutaneous weekly , Medication List reviewed and reconciled with the patient * Allergies:??N.K.D.A. Objective: * Vitals:??HR:83/min, BP:130/8 8mm Hg, Wt:152.4lbs, BMI:25.36Index, Ht: 65 in, Oxygen sat %:98%. * Physical Examination:?General: Age appropriate female, well appearing, no acute distress, speaking in full sentences without respiratory compromise. Well groomed, well developed. Alert, Interactive. ?Skin: Warm, dry and intact. ?HEENT: Normocephalic/atraumatic. ?Neck/Thyroid: Supple. Full ROM. ?Lung: Clear to auscultation bilaterally, no wheezes, rales or rhonchi. No barrel chest. Equal chest rise and fall bilaterally. ?Cardiac: S1 and S2 appreciated. No murmurs/rubs or gallops. ?Neuro: CN II-XI grossly intact. Steady gait with ambulation ?Psych: Stable mood and affect. Assessment: * Assessment: 1.??Food sticks on swallowin g - R13.10 (Primary)??2.??Overweight - E66.3??3.??BMI 25.0-25.9,adult - Z68.25??4.??Vitamin D deficiency, unspecified - E55.9??5.??Encounter for screening mammogram for malignant neoplasm of breast - Z12.31??6.??Hereditary hemochromatosis - E83.110?? Chary is a 44-year-old female who presents the office for HEAD BUTLER visit. 07/16/2023:Weight 184.5, BMI 30.7. Patient welcomed to the practice. Extensively educated on lifestyle modifications including high-protein foods, low carbohydrate snacks, sleep hygiene, stress reduction, water intake, healthy fats. Provided educational documentation regarding all this. Patient is interested in weight loss medications to give her an extra boost although she is aware of the importance of continued lifestyle in conjunction with weight loss medications for successful/sustainable weight loss. Patient has tried phentermine in the past, but admitted to a dry mouth and rebound weight gain getting off the medication. She is interested in compounded semaglutide. Educated on proper use, side effects. We will start at 0.25 mg today, and follow-up in 4 weeks, sooner as needed. 08/20/2023: Weight 176.3, BMI 29.33. Patient congratulated on effort. Continuing to lose slow, steady, sustainable weight loss. Very pleased with progress overall. Patient states that she has been sleeping better, portion control has been great and she has been feeling great on the medication. Is aware that she needs to focus more on resistance training. We will continue with semaglutide, but increase to 0.5 mg for the next 4 weeks. Patient is aware that at this time, she continues to lose weight she would not qualify for medications through health insurance. 01/08/2024: Weight 182.5, BMI 30.37. Patient was seen in July. Body composition reviewed and compared showing weight gain, 1 pound of muscle gain, 6 pounds of fat gain. Patient states she is ready to get back on track. Extensively educated on lifestyle modifications. Patient is going to contact her health insurance to see if they cover medication such as Wegovy or Zepbound. Is interested in starting Zepbound. States that she wants to start compounded while waiting for insurance approval. Educated on the insurance approval process with no guarantees of coverage or supply. Patient understanding. Will start tirzepatide 2.5 mg today. Educated on proper use, side effects. Follow-up in 4 weeks. 02/05/2024: Weight 173.4, BMI 28.85. Patient congratulated on effort. Encouraged to continue with slow, steady weight loss. Tried send Zepbpund, although still waiting on prior authorization, medical record librarian Rojas refilling out through cover my meds today. Doing tirzepatide 2.5 mg in office, taken with compliance, no side effects, noticing great improvement, feeling really well. Will continue tirzepatide 2.5 mg all waiting for insurance authorization. Continue with lifestyle as well. Patient encouraged. 03/26/2024: Weight 170, BMI 28.32. Patient congratulated on effort, body scan shows 3 pounds of weight loss. But 4 pounds of fat loss with muscle maintenance. Patient congratulated. Increase Zepbpund to 5 mg. Is aware of shortage, will contact with concern and can do compounded version in the meantime 05/08/2024: Weight 157.2, BMI 26.16. Patient congratulated on effort, continue to lose slow, steady weight. Taking Zepbound 5 mg with compliance, without side effects.. Pleased with progress overall. Focusing on high-protein, and resistance training 2 times weekly, otherwise we will continue with 5 mg dose. 07/09/24: Wt: 153 lbs, BMI: 25.46 Patient overall doing well. Has lost 5 pounds of fat mass in 1 pound skeletal muscle mass. Discussed increasing protein in diet and begin weightbearing exercise to maintain or increase skeletal muscle mass. Discussed adding protein in diet with hard-boiled eggs for breakfast as an easy alternative or a busy mom with children. Discussed diet of 1200 armando to lose weight. Patient has a home gym and agreed to set goal as using weights 1 day a week to hold self accountable. Plan to continue Zepbound 5 mg weekly injectables and follow-up in 4 weeks to assess progress. 08/12/2024: Weight 145, BMI 24.21. Patient congratulated and effort, has had great success in starting this journey. Taking Zepbound 5 mg with compliance, doubt any side effects. Goal weight is around 140 pounds. Will continue with Zepbound but do it every 10 days instead of every 7 days, follow-up in 6 weeks, and consider tapering down to Zepbound 2.5 mg at that time.Doing very well with lifestyle and nutrition and exercise. 11/12/2024: Weight 154, BMI 25. Patient has gained 9 pounds since last visit, 3 pounds of muscle, also gained some fat. Patient states that she wants to continue with Zepbound 5 mg. Is not ready to get off, states that she feels much better on the medication with joint pain, energy etc. Is aware that she cannot be on this long-term but will continue with 5 mg for now and focus on continued lifestyle changes. 12/02/2024: Weight 152, BMI 25: Continue Zepbound 5 mg. Patient is pleased with progress overall. #Lack of sleep: Educated on sleep hygiene, Improved with weight loss. # Will sign record release, patient is up-to-date on Tdap, declines flu/COVID vaccines. Will order mammogram 12/02/2024 # Due for blood work, fasting labs ordered today # Sensation of food stuck in her throat with negative endoscopy 4 years ago. Admits to worsening symptoms. Will order barium swallow. Discussed small bites/fully chewing food. Reflux medications as needed # Difficulty with active recall. Family history of ADHD. Not interested in psychiatry evaluation. Trial methylated B vitamins and co-Q10. Patient does have a family history that carries MTHFR gene # Referral to [facility] for routine skin check # History of hemochromatosis, ordering labs, following with Dr. Coco Santiago, does get routine phlebotomy Follow-up in 4 to 6 weeks for complete physical, sooner as needed All quetsions answered to patients satisfaction. Patient verbalized understanding of diagnosis and treatments explained. To call sooner prior to next visit it any questions/concerns arise. Case discussed with collaborating physician Adalberto Daly who reviewed the assessment and plan. Chart, medications, labs, vital signs reviewed. Dictation was accomplished with the use of [employer] voice recognition software, prone to medical misidentifications and grammatical errors. This is unintentional and the practitioner does try to identify and correct these, but some could still be present. Please do not hesitate to contact practitioner for clarification. Plan: * Treatment: 2.??Overweight?? Refill Zepbound Solution Auto-injector, 5 MG/0.5ML, 5 mg, Subcutaneous, weekly, 28 days, 4, Refills 0.? 3.??Vitamin D deficiency, un specified?LAB: LIPID PANEL, STANDARD ?LAB: COMPREHENSIVE METABOLIC PANEL ?LAB: CBC (INCLUDES DIFF/PLT) ?LAB: URINALYSIS, COMPLETE ?LAB: TSH ?LAB: VITAMIN D,25-OH,TOTAL,IA 4.??Encounter for screening mammogram for malignant neoplasm of breast?Imaging: MAMMOGRAM, SCREENING * Labs:?? * ?Lab: HEMOGLOBIN A1 c ?Lab: IRON, TIBC AN D FERRITIN PANEL ?Lab: VITAMIN B12 * Images: Billing Information: * Visit Code:?? 52684 Office Visit, Est Pt., Level 4. * Procedure Codes:?? * Sign off status: Completed true * Provider:??ZAKI AGUSTIN PA-C Date:??02/2025 History and Physical Notes * HPI (History of Present Illness) Category Sub-Category Detail Notes Category Not es Constitutional Chary presents today for a new patient visit. New patient paperwork reviewed with patient. Past medical, surgical, social, family history and medications reviewed. Coming from [facility]. Last CPE/Labs: 3-4 years ago. 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 Currently is living with her and four kids. Substance use/Lifestyle ETOH use: weekly will drink 3 drinks Tobacco use: declines Drugs/Marijuana use: declines Seatbelt Use: Yes Smoke Detectors: Yes Vaccinations- Flu Vaccine: UTD 07/2024 Covid: declines Tetanus: 05/2021 Prevention Screenings- Mammogram: will order PAP: UTD Patient does have a few concerns addressed today. Biggest concern is that she states that she multiple times weekly will feel like food gets stuck in her throat. Has had an endoscopy 4 years ago which was negative for stricture, but she states that the symptoms have been getting worse. She states it does not happen with liquids, just solids. States that sometimes she will feel the food gets stuck, and then she will have to take small sips of water, and she gradually feels it moved down her esophagus. She admits the pressure anteriorly, and posteriorly. Denies any reflux symptoms. Also patient states that she has some concerns with active recall, not interested in psychiatry follow-up yet for ADHD but does have family history of ADHD. Sister is positive for MTHFR gene, and she is going to try methylated B vitamins in conjunction with co-Q10 to see if that helps. Looking for referral to dermatology for routine skin check Following with Dr. 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 Well groomed, well developed. Alert, Interactive. Skin: Warm, dry and intact. HEENT: Normocephalic/atraumatic. Neck/Thyroid: Supple. Full ROM. Lung: Clear to auscultation bilaterally, no wheezes, rales or rhonchi. No barrel chest. Equal chest rise and fall bilaterally. Cardiac: S1 and S2 appreciated. No murmurs/rubs or gallops. Neuro: CN II-XI grossly intact. Steady gait with ambulation Psych: Stable mood and affect
--- OUTSIDE RECORDS SUMMARY | 2024-12-30 10:09 | XMS_ITS | Patient Health Record ---
Author Organization [facility] Address [address] [place] [address] Care Team Providers Care Operations Scheduler Name Role Phone ZAKI AGUSTIN Unavailable [phone] DALY, JAMESONCECI Unavailable [phone] DANIEL DELIA Unavailable [phone] NSARIN DALY Unavailable [phone] CESAR [place] Unavailable [phone] ALLERGIES No Known Allergies REASON FOR REFERRAL No Information MEDICATIONS Medication SIG (Take, Route, Fr equency, Duration) Notes Start Date End Date Status Zepbound 5 MG/0.5ML 5 mg Subcutaneous we ekly for 28 days Active PROBLEMS Problem Type ICD Code Onset Dates Problem Status W/U Status Risk SNOMED Code Notes Problem Vitamin D deficiency, unspecified (E55.9) Active confirmed Vitamin D deficiency (48754792) Problem Overweight (E66.3) Active confirmed Ove rweight (977812135) Problem Other obesity (E66.8) Active confirmed 649355909 Problem Hereditary hemochromatosis (E83.110) Active confirmed 58561229 Problem Encounter for screening mammogram for malignant neoplasm of breast (Z12.31) Active confirmed 483122518 Problem Encounter for screening for diabetes mellitus (Z13.1) Active confirmed 294947546 Problem Adult general medical exam (Z00.00) Active confirmed Adult health examination (328571919) Problem Obesity (BMI 30-39.9) (E66.9) Active confirmed 925220858 Problem Anemia due to vitamin B12 deficiency, unspecified B12 deficiency type (D51.9) Active confirmed 92259295 Problem BMI 30.0-30.9,adult (Z68.30) Active confirmed 282983442 Problem Encounter for screening for endocrine disorder (Z13.29) Active confirmed Endocrine/meta bolic screening (467164401) Problem Lipid screening (Z13.220) Active confirmed Lipid screening (418436130) Problem Hemochromatosis, unspecified hemochromatosis type (E83.119) Active confirmed 460471284 Problem Food sticks on swallowing (R13.10) Active confirmed 021250948 VITAL SIGNS Heart Rate 83 /min 12/02/2024 Blood pressure diastolic 88 mm Hg 12/02/2024 Oximetry 98 % 12/02/2024 Height 65 in 12/02/2024 Blood pressure systolic 130 mm Hg 12/02/2024 Weight 152.4 lbs 12/02/2024 BMI 25.36 kg/m2 12/02/2024 Encounters Encounter Location Date Provider Diagnosis [facility] [address] [place] [address] 01/16/2024 ALLYSON DALY [facility] [address] [place] [address] 01/23/2024 [facility] [address] [place] [address] 01/30/2024 ALLYSON DALY [facility] [address] [place] [address] 02/11/2024 TALAL DALY [facility] [address] [place] [address] 02/18/2024 TALAL DALY [facility] [address] [place] [address] 02/26/2024 TALAL DALY [facility] [address] [place] [address] 03/04/2024 TALAL DALY [facility] [address] [place] [address] 03/11/2024 EASTON DALY [facility] [address] [facility] [address] [place] [address] 03/26/2024 DELIA SANCHEZ [facility] [address] [place] [address] 04/02/2024 TALAL DALY [facility] [address] [place] [address] 04/09/2024 EASTON DALY [facility] [address] [facility] [place] [address] 04/16/2024 TALCECI DALY [facility] [address] [facility] [place] [address] 10/07/2024 ZAKI VAMSI [facility] [address] [facility] [place] [address] 01/08/2024 ZAKI VAMSI Other obesity E66.8 and Obesity (BMI 30-39.9) E66.9 [facility] [address] [facility] [place] [address] 02/05/2024 ZAKI VAMSI Overweight E66.3 and BMI 28.0-28.9,adult Z68.28 [facility] [address] [facility] [place] [address] 03/19/2024 ZAKI VAMSI Overweight E66.3 and BMI 28.0-28.9,adult Z68.28 [facility] [address] [facility] [address] 05/08/2024 ZAKI VAMSI Overweight E66.3 and BMI 26.0-26.9,adult Z68.26 [facility] [address] [facility] [place] [address] 07/09/2024 CESAR ALTHEA Overweight E66.3 and BMI 25.0-25.9,adult Z68.25 [facility] [address] [facility] [place] [address] 08/12/2024 ZAKI VAMSI BMI 24.0-24.9, adult Z68.24 [facility] [address] [facility] [place] [address] 11/12/2024 ZAKI VAMSI BMI 25.0-25.9,adult Z68.25 and Overweight E66.3 [facility] [address] [facility] [address] 12/02/2024 ZAKI VAMSI Overweight E66.3 ; F ood sticks on swallowing R13.10 ; BMI 25.0-25.9,adult Z68.25 ; Vitamin D deficiency, unspecified E55.9 ; Encounter for screening mammogram for malignant neoplasm of breast Z12.31 and Hereditary hemochromatosis E83.110 [facility] [address] [place] [address] 02/10/[address] [facility] [facility] [address] [place] [address] 02/14/[address] [facility] [address] [place] [address] 02/18/[address] [facility] [address] [place] [address] 03/19/2024 ZAKI VAMSI Overweight E66.[address] [facility] [address] [place] [address] 03/30/2024 ZAKI VAMSI Overweight E66.[address] [facility] [address] [place] [address] 06/17/2024 ZAKI VAMSI Overweight E66.[address] [facility] [address] [place] [address] 10/06/2024 ZAKI VAMSI [address] [facility] [address] [place] [address] 03/03/2024 ZAKI VAMSI [address] [place] [address] 03/10/[address] [facility] [address] [place] [address] 09/30/[address] [facility] [address] [place] [address] 09/30/2024 ZAKI VAMSI ASSESSMENTS Encounter Date Diagnosis Assessment Notes Treatment Notes Treatment Clinical Notes Section Notes 01/08/2024 Other obesity (ICD-10 - E66.8) Chary is a 42-year-old female who presents the office for weight management f/u. 07/16/2023:Weight 184.5, BMI 30.7. Patient welcomed to [...] use, side effects. Follow-up in 4 weeks. After consultation and careful review of medical history, this patient would benefit from Zepbound based off of the following criteria met: Patient is over the age of 18, has a BMI of 30. Patient has trialed other methods of weight loss including improving diet, exercise without success over three months. This medication is prescribed by or in consultation with a board certified obesity and weight management physician (Dr. Easton Daly or Dr. Nasrin Daly). #Lack of sleep: Educated on sleep hygiene, Improved with weight loss. Time spent on patient 30 minutes or greater than 50% of patient education and care coordination. Patient follow-up in 4 weeks, sooner as needed. All quetsions answered to patients satisfaction. Patient verbalized understanding of diagnosis and treatments explained. To call sooner prior to next visit it any questions/concerns arise. Case discussed with collaborating physician Adalberto Daly who reviewed the assessment and plan. Chart, medications, labs, vital signs reviewed. Dictation was accomplished with the use of [email or web address] voice recognition software, prone to medical misidentifications and grammatical errors. This is unintentional and the practitioner does try to identify and correct these, but some could still be present. Please do not hesitate to contact practitioner for clarification. 01/08/2024 Obesity (BMI 30-39.9) (ICD-10 - E66.9) Chary is a 42-year-old female who presents the office for weight management f/u. 07/16/2023:Weight 184.5, BMI 30.7. Patient welcomed to [...] use, side effects. Follow-up in 4 weeks. After consultation and careful review of medical history, this patient would benefit from Zepbound based off of the following criteria met: Patient is over the age of 18, has a BMI of 30. Patient has trialed other methods of weight loss including improving diet, exercise without success over three months. This medication is prescribed by or in consultation with a board certified obesity and weight management physician (Dr. Easton Daly or Dr. Nasrin Daly). #Lack of sleep: Educated on sleep hygiene, Improved with weight loss. Time spent on patient 30 minutes or greater than 50% of patient education and care coordination. Patient follow-up in 4 weeks, sooner as needed. All quetsions answered to patients satisfaction. Patient verbalized understanding of diagnosis and treatments explained. To call sooner prior to next visit it any questions/concerns arise. Case discussed with collaborating physician Adalberto Daly who reviewed the assessment and plan. Chart, medications, labs, vital signs reviewed. Dictation was accomplished with the use of [email or web address] voice recognition software, prone to medical misidentifications and grammatical errors. This is unintentional and the practitioner does try to identify and correct these, but some could still be present. Please do not hesitate to contact practitioner for clarification. 02/05/2024 Overweight (ICD-10 - E66.3) Chary is a 42-year-old female who presents the office for weight management f/u. 07/16/2023:Weight 184.5, BMI 30.7. Patient welcomed to [...] Zepbpund, although still waiting on prior authorization, biomedical engineering director Rojas refilling out through cover my meds today. Doing tirzepatide 2.5 mg in office, taken with compliance, no side effects, noticing great improvement, feeling really well. Will continue tirzepatide 2.5 mg all waiting for insurance authorization. Continue with lifestyle as well. Patient encouraged. #Lack of sleep: Educated on sleep hygiene, Improved with weight loss. Time spent on patient 30 minutes or greater than 50% of patient education and care coordination. Patient follow-up in 4 weeks, sooner as needed. All quetsions answered to patients satisfaction. Patient verbalized understanding of diagnosis and treatments explained. To call sooner prior to next visit it any questions/concerns arise. Case discussed with collaborating physician Adalberto Daly who reviewed the assessment and plan. Chart, medications, labs, vital signs reviewed. Dictation was accomplished with the use of [email or web address] voice recognition software, prone to medical misidentifications and grammatical errors. This is unintentional and the practitioner does try to identify and correct these, but some could still be present. Please do not hesitate to contact practitioner for clarification. 02/05/2024 BMI 28.0-28.9,adult (ICD-10 - Z68.28) Chary is a 42-year-old female who presents the office for weight management f/u. 07/16/2023:Weight 184.5, BMI 30.7. Patient welcomed to [...] Zepbpund, although still waiting on prior authorization, biomedical engineering director Rojas refilling out through cover my meds today. Doing tirzepatide 2.5 mg in office, taken with compliance, no side effects, noticing great improvement, feeling really well. Will continue tirzepatide 2.5 mg all waiting for insurance authorization. Continue with lifestyle as well. Patient encouraged. #Lack of sleep: Educated on sleep hygiene, Improved with weight loss. Time spent on patient 30 minutes or greater than 50% of patient education and care coordination. Patient follow-up in 4 weeks, sooner as needed. All quetsions answered to patients satisfaction. Patient verbalized understanding of diagnosis and treatments explained. To call sooner prior to next visit it any questions/concerns arise. Case discussed with collaborating physician Adalberto Daly who reviewed the assessment and plan. Chart, medications, labs, vital signs reviewed. Dictation was accomplished with the use of [email or web address] voice recognition software, prone to medical misidentifications and grammatical errors. This is unintentional and the practitioner does try to identify and correct these, but some could still be present. Please do not hesitate to contact practitioner for clarification. 03/19/2024 Overweight (ICD-10 - E66.3) Chary is a 42-year-old female who presents the office for weight management f/u. 07/16/2023:Weight 184.5, BMI 30.7. Patient welcomed to [...] Zepbpund, although still waiting on prior authorization, biomedical engineering director Rojas refilling out through cover my meds [...] can do compounded version in the meantime #Lack of sleep: Educated on sleep hygiene, Improved with weight loss. Time spent on patient 30 minutes or greater than 50% of patient education and care coordination. Patient follow-up in 6 weeks, sooner as needed. All quetsions answered to patients satisfaction. Patient verbalized understanding of diagnosis and treatments explained. To call sooner prior to next visit it any questions/concerns arise. Case discussed with collaborating physician Adalberto Daly who reviewed the assessment and plan. Chart, medications, labs, vital signs reviewed. Dictation was accomplished with the use of [email or web address] voice recognition software, prone to medical misidentifications and grammatical errors. This is unintentional and the practitioner does try to identify and correct these, but some could still be present. Please do not hesitate to contact practitioner for clarification. 03/19/2024 Overweight (ICD-10 - E66.3) 03/30/2024 Overweight (ICD-10 - E66.3) 05/08/2024 Overweight (ICD-10 - E66.3) Chary is a 42-year-old female who presents the office for weight management f/u. 07/16/2023:Weight 184.5, BMI 30.7. Patient welcomed to [...] Zepbpund, although still waiting on prior authorization, biomedical engineering director Rojas refilling out through cover my meds [...] we will continue with 5 mg dose. #Lack of sleep: Educated on sleep hygiene, Improved with weight loss. Follow-up in June for weight management, sooner as needed. Time spent on patient 30 minutes or greater than 50% of patient education and care coordination. All quetsions answered to patients satisfaction. Patient verbalized understanding of diagnosis and treatments explained. To call sooner prior to next visit it any questions/concerns arise. Case discussed with collaborating physician Adalberto Daly who reviewed the assessment and plan. Chart, medications, labs, vital signs reviewed. Dictation was accomplished with the use of [email or web address] voice recognition software, prone to medical misidentifications and grammatical errors. This is unintentional and the practitioner does try to identify and correct these, but some could still be present. Please do not hesitate to contact practitioner for clarification. 05/08/2024 BMI 26.0-26.9,adult (ICD-10 - Z68.26) Chary is a 42-year-old female who presents the office for weight management f/u. 07/16/2023:Weight 184.5, BMI 30.7. Patient welcomed to [...] Zepbpund, although still waiting on prior authorization, biomedical engineering director Rojas refilling out through cover my meds [...] we will continue with 5 mg dose. #Lack of sleep: Educated on sleep hygiene, Improved with weight loss. Follow-up in June for weight management, sooner as needed. Time spent on patient 30 minutes or greater than 50% of patient education and care coordination. All quetsions answered to patients satisfaction. Patient verbalized understanding of diagnosis and treatments explained. To call sooner prior to next visit it any questions/concerns arise. Case discussed with collaborating physician Adalberto Daly who reviewed the assessment and plan. Chart, medications, labs, vital signs reviewed. Dictation was accomplished with the use of [email or web address] voice recognition software, prone to medical misidentifications and grammatical errors. This is unintentional and the practitioner does try to identify and correct these, but some could still be present. Please do not hesitate to contact practitioner for clarification. 06/17/2024 Overweight (ICD-10 - E66.3) 07/09/2024 Overweight (ICD-10 - E66.3) Chary is a 42-year-old female who presents the office for weight management f/u. 07/16/2023:Weight 184.5, BMI 30.7. Patient welcomed to [...] Zepbpund, although still waiting on prior authorization, biomedical engineering director Rojas refilling out through cover my meds [...] follow-up in 4 weeks to assess progress. #Lack of sleep: Educated on sleep hygiene, Improved with weight loss. Time spent on patient 30 minutes or greater than 50% of patient education and care coordination. All Questions answered to patients satisfaction. Patient verbalized understanding of diagnosis and treatments explained. To call sooner prior to next visit it any questions/concerns arise. Case discussed with collaborating physician Adalberto Daly who reviewed the assessment and plan. Chart, medications, labs, vital signs reviewed. Dictation was accomplished with the use of [email or web address] voice recognition software, prone to medical misidentifications and grammatical errors. This is unintentional and the practitioner does try to identify and correct these, but some could still be present. Please do not hesitate to contact practitioner for clarification. 07/09/2024 BMI 25.0-25.9,adult (ICD-10 - Z68.25) Chary is a 42-year-old female who presents the office for weight management f/u. 07/16/2023:Weight 184.5, BMI 30.7. Patient welcomed to [...] Zepbpund, although still waiting on prior authorization, biomedical engineering director Rojas refilling out through cover my meds [...] follow-up in 4 weeks to assess progress. #Lack of sleep: Educated on sleep hygiene, Improved with weight loss. Time spent on patient 30 minutes or greater than 50% of patient education and care coordination. All Questions answered to patients satisfaction. Patient verbalized understanding of diagnosis and treatments explained. To call sooner prior to next visit it any questions/concerns arise. Case discussed with collaborating physician Adalberto Daly who reviewed the assessment and plan. Chart, medications, labs, vital signs reviewed. Dictation was accomplished with the use of [email or web address] voice recognition software, prone to medical misidentifications and grammatical errors. This is unintentional and the practitioner does try to identify and correct these, but some could still be present. Please do not hesitate to contact practitioner for clarification. 08/12/2024 BMI 24.0-24.9, adult (ICD-10 - Z68.24) Chary is a 42-year-old female who presents the office for weight management f/u. 07/16/2023:Weight 184.5, BMI 30.7. Patient welcomed to [...] Zepbpund, although still waiting on prior authorization, biomedical engineering director Rojas refilling out through cover my meds [...] well with lifestyle and nutrition and exercise. #Lack of sleep: Educated on sleep hygiene, Improved with weight loss. Time spent on patient 30 minutes or greater than 50% of patient education and care coordination. All Questions answered to patients satisfaction. Patient verbalized understanding of diagnosis and treatments explained. To call sooner prior to next visit it any questions/concerns arise. Case discussed with collaborating physician Adalberto Daly who reviewed the assessment and plan. Chart, medications, labs, vital signs reviewed. Dictation was accomplished with the use of [email or web address] voice recognition software, prone to medical misidentifications and grammatical errors. This is unintentional and the practitioner does try to identify and correct these, but some could still be present. Please do not hesitate to contact practitioner for clarification. 11/12/2024 Overweight (ICD-10 - E66.3) Chary is a 42-year-old female who presents the office for weight management f/u. 07/16/2023:Weight 184.5, BMI 30.7. Patient welcomed to [...] Zepbpund, although still waiting on prior authorization, biomedical engineering director Rojas refilling out through cover my meds [...] now and focus on continued lifestyle changes. #Lack of sleep: Educated on sleep hygiene, Improved with weight loss. Patient also wants to establish with us for PCP. I did give her a new patient coordinator number. Time spent on patient 30 minutes or greater than 50% of patient education and care coordination. All Questions answered to patients satisfaction. Patient verbalized understanding of diagnosis and treatments explained. To call sooner prior to next visit it any questions/concerns arise. Case discussed with collaborating physician Adalberto Daly who reviewed the assessment and plan. Chart, medications, labs, vital signs reviewed. Dictation was accomplished with the use of [email or web address] voice recognition software, prone to medical misidentifications and grammatical errors. This is unintentional and the practitioner does try to identify and correct these, but some could still be present. Please do not hesitate to contact practitioner for clarification. 11/12/2024 BMI 25.0-25.9,adult (ICD-10 - Z68.25) Chary is a 42-year-old female who presents the office for weight management f/u. 07/16/2023:Weight 184.5, BMI 30.7. Patient welcomed to [...] Zepbpund, although still waiting on prior authorization, biomedical engineering director Rojas refilling out through cover my meds [...] now and focus on continued lifestyle changes. #Lack of sleep: Educated on sleep hygiene, Improved with weight loss. Patient also wants to establish with us for PCP. I did give her a new patient coordinator number. Time spent on patient 30 minutes or greater than 50% of patient education and care coordination. All Questions answered to patients satisfaction. Patient verbalized understanding of diagnosis and treatments explained. To call sooner prior to next visit it any questions/concerns arise. Case discussed with collaborating physician Adalberto Daly who reviewed the assessment and plan. Chart, medications, labs, vital signs reviewed. Dictation was accomplished with the use of [email or web address] voice recognition software, prone to medical misidentifications and grammatical errors. This is unintentional and the practitioner does try to identify and correct these, but some could still be present. Please do not hesitate to contact practitioner for clarification. 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 07/16/2023:Weight 184.5, BMI 30.7. Patient welcomed [...] Zepbpund, although still waiting on prior authorization, biomedical engineering director Rojas refilling out through cover my meds [...] that carries MTHFR gene # Referral to [facility] for routine skin check # History [...] Dictation was accomplished with the use of [email or web address] voice recognition software, prone to medical misidentifications and grammatical errors. This is unintentional and the practitioner does try to identify and correct these, but some could still be present. Please do not hesitate to contact practitioner for clarification. 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 07/16/2023:Weight 184.5, BMI 30.7. Patient welcomed [...] Zepbpund, although still waiting on prior authorization, biomedical engineering director Rojas refilling out through cover my meds [...] that carries MTHFR gene # Referral to [facility] for routine skin check # History [...] Dictation was accomplished with the use of [email or web address] voice recognition software, prone to medical misidentifications and grammatical errors. This is unintentional and the practitioner does try to identify and correct these, but some could still be present. Please do not hesitate to contact practitioner for clarification. 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 07/16/2023:Weight 184.5, BMI 30.7. Patient welcomed [...] Zepbpund, although still waiting on prior authorization, biomedical engineering director Rojas refilling out through cover my meds [...] that carries MTHFR gene # Referral to [facility] for routine skin check # History [...] Dictation was accomplished with the use of [email or web address] voice recognition software, prone to medical misidentifications and grammatical errors. This is unintentional and the practitioner does try to identify and correct these, but some could still be present. Please do not hesitate to contact practitioner for clarification. 03/19/2024 BMI 28.0-28.9,adult (ICD-10 - Z68.28) Chary is a 42-year-old female who presents the office for weight management f/u. 07/16/2023:Weight 184.5, BMI 30.7. Patient welcomed to [...] Zepbpund, although still waiting on prior authorization, biomedical engineering director Rojas refilling out through cover my meds [...] can do compounded version in the meantime #Lack of sleep: Educated on sleep hygiene, Improved with weight loss. Time spent on patient 30 minutes or greater than 50% of patient education and care coordination. Patient follow-up in 6 weeks, sooner as needed. All quetsions answered to patients satisfaction. Patient verbalized understanding of diagnosis and treatments explained. To call sooner prior to next visit it any questions/concerns arise. Case discussed with collaborating physician Adalberto Daly who reviewed the assessment and plan. Chart, medications, labs, vital signs reviewed. Dictation was accomplished with the use of [email or web address] voice recognition software, prone to medical misidentifications and grammatical errors. This is unintentional and the practitioner does try to identify and correct these, but some could still be present. Please do not hesitate to contact practitioner for clarification. 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 07/16/2023:Weight 184.5, BMI 30.7. Patient welcomed [...] Zepbpund, although still waiting on prior authorization, biomedical engineering director Rojas refilling out through cover my meds [...] that carries MTHFR gene # Referral to [facility] for routine skin check # History [...] Dictation was accomplished with the use of [email or web address] voice recognition software, prone to medical misidentifications and grammatical errors. This is unintentional and the practitioner does try to identify and correct these, but some could still be present. Please do not hesitate to contact practitioner for clarification. 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 07/16/2023:Weight 184.5, BMI 30.7. Patient welcomed [...] Zepbpund, although still waiting on prior authorization, biomedical engineering director Rojas refilling out through cover my meds [...] that carries MTHFR gene # Referral to [facility] for routine skin check # History [...] Dictation was accomplished with the use of [email or web address] voice recognition software, prone to medical misidentifications and grammatical errors. This is unintentional and the practitioner does try to identify and correct these, but some could still be present. Please do not hesitate to contact practitioner for clarification. 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 07/16/2023:Weight 184.5, BMI 30.7. Patient welcomed [...] Zepbpund, although still waiting on prior authorization, biomedical engineering director Rojas refilling out through cover my meds [...] that carries MTHFR gene # Referral to [facility] for routine skin check # History [...] Dictation was accomplished with the use of [email or web address] voice recognition software, prone to medical misidentifications and grammatical errors. This is unintentional and the practitioner does try to identify and correct these, but some could still be present. Please do not hesitate to contact practitioner for clarification. PLAN OF TREATMENT Pending Test Test Name Order Date Barium Swallow 12/02/2024 MAMMOGRAM, SCREENING 12/02/2024 LIPID PANEL, STANDARD 12/02/2024 IRON, TIBC AND FERRITIN PANEL 12/02/2024 COMPREHENSIVE METABOLIC PANEL 12/02/2024 CBC (INCLUDES DIFF/PLT) 12/02/2024 URINALYSIS, COMPLETE 12/02/2024 HEMOGLOBIN A1c 12/02/2024 VITAMIN B12 12/02/2024 TSH 12/02/2024 VITAMIN D,25-OH,TOTAL,IA 12/02/2024 Next Appt Details Provider Name:ZAKI AGUSTIN, 0 01/14/2025 01:30:00 PM, [address], [place], [address], Insurance Providers Payer Name Payer Address Payer Phone Subscriber Number Group Number Insured Name Patient Relationship to Insured Coverage Start Date Coverage End Date [facility] [address] [place] [id number] Chary Ureña Self - patient is the insured MEDICATIONS ADMINISTERED Medication Instructions Date of Administration Dosage Notes Semaglutide 07/16/2023 0.25 mg sema 0.25mg Semaglutide 07/23/2023 0.25 sema 0.25mg Semaglutide 07/30/2023 0.25 mg Lot #[id number] 0.25MG Semaglutide 08/13/2023 lot#[id number] 0.25mg Semaglutide 08/20/2023 0.5 sema 0.5 Semaglutide 09/03/2023 0.5 mg LLQ SQ Semaglutide 09/17/2023 0.5 mg LLQ SQ Tirzepatide 01/08/2024 2.5 mg Tirzepatide 01/16/2024 2.5 mg LRQ SQ Tirzepatide 01/23/2024 2.5 mg Tirzepatide 01/30/2024 2.5 mg Tirzepatide 02/05/2024 2.5 mg Tirzepatide 02/11/2024 2.5 Tirzepatide 02/18/2024 2.5 Tirzepatide 02/26/2024 2.5 mg Tirzepatide 03/26/2024 5 mg MEDICAL (GENERAL) HISTORY Medical History History ICD Code Weight gain R63.5 Hereditary hemochromatosis E83.110 Uterine Fibroids Sensation of food stuck in throat Surgical History Surgery Date(Month/Year) deviated septum right ovarian cyst removed fibroid removal Hospitalization History Reason Date(Month/Year) with pre-eclampsia
--- OUTSIDE RECORDS SUMMARY | 2024-12-30 10:09 | XMS_ITS ---
Author Organization [facility] Address [address] [place] [address] Care Team Providers Care Mechanotherapist Name Role Phone ZAKI AGUSTIN Unavailable [phone] ALLERGIES No Known Allergies REASON FOR VISIT Patient presents for weight management follow up. Previous weight was 145lbs, current weight is standing at 154lbs. No acute concerns needed to be addressed MEDICATIONS Medication SIG (Take, Route, Fr equency, Duration) Notes Start Date End Date Status Zepbound 5 MG/0.5ML 5 mg Subcutaneous we ekly for 28 days Active VITAL SIGNS Blood pressure systolic 104 mm Hg 11/12/19 25 Blood pressure diastolic 68 mm Hg 025 Heart Rate 77 /min 11/12/2024 Height 65 in 11/12/2024 Weight 154.0 lbs 11/12/2024 BMI 25.62 kg/m2 11/12/2024 Oximetry 98 % 11/12/2024 Encounters Encounter Location Date Provider Diagnosis [facility] [address] [facility] [place] [address] 11/12/2024 ZAKI AGUSTIN BMI 25.0-25.9,adult Z68.25 and Overweight E66.3 ASSESSMENTS Encounter Date Diagnosis Assessment Notes Treatment Notes Treatment Clinical Notes Section Notes 11/12/2024 BMI 25.0-25.9,adul t (ICD-10 - Z68.25) Chary is a 42-year-old [...] in conjunction with weight loss medications for successful/sustainabl e weight loss. Patient has tried phentermine in [...] although still waiting on prior authorization, medical transcriptionist Rojas refilling out through cover my meds [...] Dictation was accomplished with the use of [employer] voice recognition software, prone to medical misidentifications [...] in conjunction with weight loss medications for successful/sustainabl e weight loss. Patient has tried phentermine in [...] although still waiting on prior authorization, medical transcriptionist Rojas refilling out through cover my meds [...] Dictation was accomplished with the use of [employer] voice recognition software, prone to medical misidentifications and grammatical errors. This is unintentional and the practitioner does try to identify and correct these, but some could still be present. Please do not hesitate to contact practitioner for clarification. PLAN OF TREATMENT Medication Medication Name Sig Start Date Stop Date Notes Zepbound 5 MG/0.5ML 5 mg Subcutaneous weekly for 28 days Next Appt Details Provider Name:Destini ASHLEY 01/14/2025 01:30:00 PM, [address], [place], [address], Progress Notes * Ross UREÑAaDOB:1980 (44 yo F)Acc No.[id number]:11/12/2024 Patient:??Chary UREÑA Provider:??ZAKI AGUSTIN PA-C :1980?Age:44 Y?Sex:Fe male Date:11/12/2024 Address:[address] [place] [address] , [place], [id number] Subjective: * Chief Complaints: * ?1. Patient presents fo r weight management follow up. Previous weight was 145lbs, current weight is standing at 154lbs. No acute concerns needed to be addressed. * HPI: ?Constitutional:? Chary is a pleasant 44-year-old female who presents to the office for a weight management follow-up. Last seen 08/12/2024. Currently, taking Wegovy 5 mg with compliance, without any side effects. Goal is around 140 pounds. Last visit patient was 145 pounds. Continue Zepbound 5 mg every 10 days, following up today with the goal to taper to 2.5 mg. Patient states she feels better on the medication. Does not want to get off the medication. Gained some weight since last visit. Very busy with four kids and multiple sports. States her water and sleep and stress has been off as well. * ROS:?Constitutional: , no fever, no night [...] swelling. * Medical History:??Weight gai n, Hereditary hemochromatosis. * Surgical History:?? , deviated septum , right ovarian cyst removed . * Hospitalization/Major Diagno stic Procedure:?? with pre-eclampsia . * Family History:??Father: ali ve 70 yrs.??Mother: alive 70 yrs.??2 sister(s) - healthy. 3 son(s) , 1 daughter(s) - healthy. .?? no significant family history. 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 * Medications:??Taking Zepboun d 5 MG/0.5ML Solution Auto-injector 5 mg Subcutaneous weekly , Medication List reviewed and reconciled with the patient * Allergies:??N.K.D.A. Objective: * Vitals:??HR:77/min, BP:104/6 8mm Hg, Wt:154.0lbs, BMI:25.62Index, Ht: 65 in, Oxygen sat %:98%. * [...] Stable mood and affect. Assessment: * Assessment: 1.??Overweight - E66.3 (Prim kuldip)??2.??BMI 25.0-25.9,adult - Z68.25?? Chary is a 42-year-old female who presents [...] although still waiting on prior authorization, medical transcriptionist Rojas refilling out through cover my meds [...] Dictation was accomplished with the use of [employer] voice recognition software, prone to medical misidentifications and grammatical errors. This is unintentional and the practitioner does try to identify and correct these, but some could still be present. Please do not hesitate to contact practitioner for clarification. Plan: * Treatment: * Procedure Codes:??00275 P/M SASH STICKER, INDIV 15 MIN * Images: Billing Information: * Visit Code:?? 93436 Office Visit, Est Pt., Level 3. * Procedure Codes:?? 92058 P/M SASH STICKER, INDIV 15 MIN. * Sign off status: Completed true * Provider:??ZAKI AGUSTIN PA-C Date:??10/28 History and Physical Notes * HPI (History of Present Illness) Category Sub-Category Detail Notes Category Not es Constitutional Chary is a ple asant 44-year-old female who presents to the office for a weight management follow-up. Last seen 08/12/2024. Currently, taking Wegovy 5 mg with compliance, without any side effects. Goal is around 140 pounds. Last visit patient was 145 pounds. Continue Zepbound 5 mg every 10 days, following up today with the goal to taper to 2.5 mg. Patient states she feels better on the medication. Does not want to get off the medication. Gained some weight since last visit. Very busy with four kids and multiple sports. States her water and sleep and stress has been off as well. Physical Examination Category Sub-Category Detail Notes Section [...]
== END 2024-12-30 09:09 | disposition home or self-care (01) ==
LOC: HO.BBR 09:08
PROVIDERS: Visit Provider Internal Medicine Hematology
DX: Z13.89 Encounter for screening for other disorder (principal)

== ENCOUNTER 2025-04-01 09:06 | Outpatient (REF) | payer OTHER, SELFPAY ==
--- OUTSIDE RECORDS SUMMARY | 2025-04-01 09:46 | XMS_ITS ---
Author Organization [facility] [address] Address [address] [place] [address] Care Team Providers Care Film Coater Name Role Phone IGLESIASLITA HAYSY Unavailable [phone] REASON FOR VISIT 5 week f/u Encounters Encounter Location Date Provider Diagnosis [facility] [address] [place] [address] 01/14/2025 ZAKI IGLESIAS Plan Of Treatment Next Appt Details Provider Name:ZAKI IGLESIAS, 04/07/2025 09:15:00 AM, [address] , [place], [address], Progress Notes * Ross UREÑAEmigdioB:1980 (44 yo F)Acc No.[id number]:01/14/2025 CPE Patient:?Chary UREÑA Provider:?ZAKI AGUSTIN PA-C :1980???Age:44 Y???Sex:Female D ate:01/14/2025 Address[place], [id number] Subjective: * Chief Complaints: * ???1. 5 week f/u. * Medical History:? Objective: * Vitals:? Assessment: Plan: * Treatment: * Images: Billing Information: * Visit Code:? * Procedure Codes:? Care Plan Details* * Electronic signature of LITA IGLESIAS PA-C on 04/01/2025 at 09:45 AM EDT Sign off status: Pending * Provider:?ZAKI AGUSTIN PA-C Date:?2024 Generated for Terrence farias/Lucille/Ivisitting on:?04/01/2025 09:45 AM EDT
== END 2025-04-01 09:07 | disposition home or self-care (01) ==
LOC: HO.BBR 09:06
PROVIDERS: Visit Provider Internal Medicine Hematology
DX: Z13.89 Encounter for screening for other disorder (principal)